=== PATIENT | female | born 1980 | race Caucasian/White ===

== ENCOUNTER 2020-11-09 16:20 | Day surgery (SDC) | payer OTHER ==
[~2020-11-09] VITALS: Ht 170.2 cm; Wt 98.5 kg
[~2020-11-09 16:20] MED LIST: PRILOSEC20 MG PO; ZOFRAN4 MG PO
[2020-11-09] MEDS ORDERED: CELEXA20 MG PO (16:26)
[2020-11-09] MEDS ORDERED: PRINIVIL10 MG PO (16:26)
[2020-11-09] MEDS ORDERED: STELARA IM (16:31)
[2020-11-09] MEDS ORDERED: PERCOCET 5-3251 EACH PO (16:32)
[2020-11-09 16:43] LABS: HCT 33.6 % (37.0-47.0); HGB 10.7 g/dl (12.5-16.0); MCH 27.4 pg (25.0-31.0); MCHC 31.8 g/dL (32.0-36.0); MCV 86.2 fL (78.0-100.0); MPV 10.7 fL (6.0-9.5); RBC 3.9 M/uL (4.20-5.40); RDW 13.9 % (11.5-14.0); WBC 17.5 K/uL (4.0-10.5)
[2020-11-09 17:02] LABS: ALBUMIN 2.9 g/dL (3.4-5.0); BILIRUBIN - TOTAL 0.8 mg/dL (0.2-1.0); BUN/CREAT RATIO (CALC) 9.9 RATIO; CREATININE 0.81 mg/dL (0.51-0.95); GLOBULIN (CALCULATION) 4.4 g/dL; POTASSIUM 3.5 mmol/L (3.5-5.1); TOTAL PROTEIN 7.3 g/dL (6.4-8.2)
[2020-11-09] MEDS ORDERED: PHENERGAN25 M1 PO (17:53)
[2020-11-09] MEDS ORDERED: VICODIN 10/3251 EACH PO (17:53)
== END 2020-11-09 19:36 | disposition home or self-care (01) ==
LOC: FAS 16:20 → FMS 19:08 → FAS 19:36
PROVIDERS: Surgery
DX: K61.1 Rectal abscess (principal); I10 Essential (primary) hypertension; L40.0 Psoriasis vulgaris; Z98.51 Tubal ligation status; Z88.5 Allergy status to narcotic agent; Z88.1 Allergy status to other antibiotic agents; Z20.822 Contact with and (suspected) exposure to COVID-19
CPT/HCPCS: 36415; 80053; 84703; 93005; J1100; J1170; J2250; J2405; J2550; J2704; J3010; U0002

== ENCOUNTER → 2021-03-22 | Day surgery (SDC) | payer OTHER ==
[~2021-03-22] VITALS: Ht 170.2 cm; Wt 98.5 kg
[~2021-03-22] MED LIST changes: +BENADRYL25 M1 PO; +CELEXA20 MG PO; +PERCOCET 5-3251 EACH PO; +PHENERGAN25 M1 PO; +PRINIVIL10 MG PO; +STELARA IM; +VICODIN 10/3251 EACH PO
[2021-03-22 08:31] LABS: HCG (URINE) SCREEN NEGATIVE (NEGATIVE)
[2021-03-22 08:38] LABS: HCT 40.7 % (37.0-47.0); HGB 13.1 g/dl (12.5-16.0); MCH 27.6 pg (25.0-31.0); MCHC 32.2 g/dL (32.0-36.0); MCV 85.9 fL (78.0-100.0); MPV 11.5 fL (6.0-9.5); RBC 4.74 M/uL (4.20-5.40); RDW 14.3 % (11.5-14.0); WBC 13.3 K/uL (4.0-10.5)
[2021-03-22 09:06] LABS: ALBUMIN 3.7 g/dL (3.4-5.0); BILIRUBIN - TOTAL 0.4 mg/dL (0.2-1.0); BUN/CREAT RATIO (CALC) 17.8 RATIO; CREATININE 0.73 mg/dL (0.51-0.95); GLOBULIN (CALCULATION) 4.1 g/dL; POTASSIUM 4.7 mmol/L (3.5-5.1); TOTAL PROTEIN 7.8 g/dL (6.4-8.2)
== END | disposition home or self-care (01) ==
LOC: FAS 07:42
PROVIDERS: Surgery
DX: Z12.11 Encounter for screening for malignant neoplasm of colon (principal); Z98.51 Tubal ligation status; Z88.6 Allergy status to analgesic agent; Z88.8 Allergy status to other drugs, medicaments and biological substances; Z98.890 Other specified postprocedural states; Z90.49 Acquired absence of other specified parts of digestive tract
CPT/HCPCS: 36415; 80053; 84703; J2250; J2704; J7120

== ENCOUNTER → 2021-11-26 | Day surgery (SDC) | payer OTHER ==
[~2021-11-26] VITALS: Ht 170.2 cm; Wt 98.5 kg
[~2021-11-26] MED LIST changes: +NORCO 5-325 TA1 EACH PO
[2021-11-26 08:25] LABS: HCG (URINE) SCREEN NEGATIVE (NEGATIVE)
[2021-11-26 08:26] LABS: HCT 34.4 % (37.0-47.0); MCH 27.2 pg (25.0-31.0); MCV 85.1 fL (78.0-100.0); MPV 10.6 fL (6.0-9.5); RBC 4.04 M/uL (4.20-5.40); RDW 14.3 % (11.5-14.0); WBC 14.6 K/uL (4.0-10.5)
[2021-11-26 08:57] LABS: BILIRUBIN - TOTAL 0.4 mg/dL (0.2-1.0); BUN/CREAT RATIO (CALC) 11.3 RATIO; CREATININE 0.71 mg/dL (0.51-0.95); GLOBULIN (CALCULATION) 3.9 g/dL; TOTAL PROTEIN 6.9 g/dL (6.4-8.2)
== END | disposition home or self-care (01) ==
LOC: FAS 07:50
PROVIDERS: Surgery
DX: K61.1 Rectal abscess (principal); Z88.6 Allergy status to analgesic agent; Z88.8 Allergy status to other drugs, medicaments and biological substances
CPT/HCPCS: 36415; 80053; 84703; 93005; J1100; J1170; J2250; J2405; J2550; J2704; J3010; J7120